=== PATIENT | female | born 1965 | race Caucasian/White ===

== ENCOUNTER 2016-06-15 17:44 | Emergency (ER) | payer BC, MEDICAID ==
[~2016-06-15] VITALS: Ht 162.6 cm; Wt 68.0 kg
[2016-06-15 17:55] VITALS: BP 143/81
[2016-06-15] MEDS ORDERED: CORTISPORIN EAR10 ML BOTH EARS (18:00)
[2016-06-15 18:10] VITALS: BP 143/81
--- NOTE | 2016-06-15 19:00 | Emergency Room Report ---
History of Present Illness General Chief Complaint: Earache Source: Patient Present Illness HPI The patient is a 51-year-old female presenting for right ear pain which began 2 days prior. The patient states the pain is a 10 out of 10 dull ache and is worse with touch. The patient also admits to decreased hearing out of that ear. The patient also believes she has had discharge from the ear. The patient admits to subjective fever which began yesterday. The patient denies recent swimming but does admit to using Q-tips every day. The patient denies any other symptoms including N, V, chills, GALLEGOS, dizziness, cough, sore throat, SOB, CP Allergies: Coded Allergies: No Known Allergies (Unverified , 06/15/16) Patient History Past Medical History: see triage record Pertinent Family History: none Reviewed Nursing Documentation: PMH: Agreed, PSxH: Agreed Nursing Documentation-PMH Past Medical History: No Stated History Review of Systems All Other Systems: negative except mentioned in HPI Physical Exam Vital Signs Date Time Temp Pulse Resp B/P Pulse Ox O2 Delivery O2 Flow Rate FiO2 06/15/16 17:51 98.2 71 20 143/81 97 Room Air Sp02 EP Interpretation: reviewed, normal General Appearance: no apparent distress, alert, GCS 15, non-toxic Head: normocephalic, atraumatic Eyes: bilateral eye PERRL, bilateral eye normal inspection ENT: hearing grossly normal, normal pharynx, no angioedema, normal voice, uvula midline, other - R ear: extensive white DC and erythema. TTP. L ear shows mild white DC Neck: full range of motion, supple/symm/no masses Respiratory: chest non-tender, lungs clear, normal breath sounds, no wheezing, speaking full sentences Cardiovascular #1: regular rate, rhythm, no edema Gastrointestinal: normal bowel sounds, non tender, soft, non-distended, no guarding, no rebound Musculoskeletal: back normal, gait/station normal, normal range of motion, non- tender Neurologic: alert, oriented x3, responsive, motor strength/tone normal, sensory intact, speech normal Psychiatric: judgement/insight normal, memory normal, mood/affect normal, no suicidal/homicidal ideation Skin: normal color, no rash, warm/dry, well hydrated Lymphatic: adenopathy - cervical Medical Decision Making PA Attestation Dr. Fu is my supervising physician. Patient management was discussed with my supervising physician Diagnostic Impression: Primary Impression: Otitis externa of both ears ER Course The patient is a 51-year-old female presenting for right ear pain which began 2 days prior. Differential diagnosis include but not limited to otitis externa, otitis media, mastoiditis, sinusitis, pharyngitis PE: vitals WNL. NAD HEENT: R ear: extensive white DC and erythema. TTP. L ear shows mild white DC. TM intact bilat. No bulging. otherwise unremarkable. Findings consistent with otitis externa. Patient will be discharged with a prescription for Cortisporin. ER precautions are given and the patient is advised to stop using Q-tips. Last Vital Signs Date Time Temp Pulse Resp B/P Pulse Ox O2 Delivery O2 Flow Rate FiO2 06/15/16 18:10 98.2 71 20 143/81 97 Room Air Status: improved Disposition: HOME, SELF-CARE Condition: Improved Scripts Neomycin/Polymyxin B Sulf/Hc* (CORTISPORIN EAR SOLUTION*) 10 Ml Solution 4 DROP BOTH EARS QID, #10 ML 0 Refills Prov: LORENA WHITE 06/15/16 Referrals: [facility],REFERRING (PCP) Patient Instructions: Otitis Externa Additional Instructions: I discussed my findings with the patient. All questions and concerns have been answered. Treatment and medication compliance have been addressed. I advised the patient that they need to follow up with PMD in 3-5 days. Return to ED if symptoms worsen, new symptoms arise, or if needed for any reason. Patient verbalized understanding of discharge instructions. LORENA WHITE Jun 15, 2016 19:00
== END 2016-06-15 18:10 | disposition home or self-care (01) ==
LOC: EMR 18:10
DX: H60.93 Unspecified otitis externa, bilateral (principal)
CPT/HCPCS: 99283